=== PATIENT | male | born 1950 | race American Indian/Alaskan Native ===

== ENCOUNTER 2016-10-02 11:47 | Observation (INO) ==
--- NOTE | 2016-10-02 14:04 | Emergency Department Note ---
Disposition Clinical Impression: Chest pain Qualifiers: Chest pain type: unspecified Qualified Code(s): R07.9 - Chest pain, unspecified Disposition: Admitted As Inpatient Condition: Fair Referrals: Niurka Rob MD [Primary Care Provider] - Forms: ED Satisfaction Letter Time of Disposition: 15:10 Chest Pain HPI - General Chief Complaint: ED Chest Pain Stated Complaint: chest pain Time Seen by Provider: 10/02/16 14:02 Source: patient Mode of arrival: ambulatory Limitations: no limitations Vital Signs Reviewed: Yes Nursing Notes Reviewed: Yes - History of Present Illness HPI Narrative: 66-year-old male who comes in with complaints of chest pain described as substernal started in the middle of the night. The patient states he has risk factors of cigarette smoking, hypertension, high cholesterol. The patient states he had a cardiac catheter 2 years ago that showed some moderate blockage. Pt complaint: chest pain Onset (ago): hour(s) Duration: constant Onset: during rest Pain Location: substernal, left chest Severity: moderate Severity scale (1-10): 5 Quality: tightness, aching, heaviness Pain Radiation: none Improves with: nothing Worsens with: nothing Treatments prior to arrival chest pain: none - Related Data Home Medications Medication Instructions Recorded Confirmed Alprazolam [Xanax 0.5 MG Tablet] 0.5 mg PO BID PRN 02/12/16 10/02/16 Cholecalciferol (D-3) [Vitamin D] 5,000 unit PO DAILY 02/12/16 10/02/16 Iron Polysaccharide Complex [Pro 180 mg PO DAILY 02/12/16 10/02/16 Fe] Lansoprazole [Prevacid] 30 mg PO DAILY 02/12/16 10/02/16 Lisinopril [Zestril] 10 mg PO DAILY 02/12/16 10/02/16 Milk Thistle 150 mg PO DAILY 02/12/16 10/02/16 Multivitamin [Multi-Day Vitamins] 1 tab PO DAILY 02/12/16 10/02/16 Plant Stanol Rosetta [Cholest Off] 450 mg PO DAILY 02/12/16 10/02/16 Ubidecarenone [Co Q10] 100 mg PO DAILY 02/12/16 10/02/16 Previous Rx's Medication Instructions Recorded Folic Acid 1 mg PO DAILY 30 Days 02/13/16 Metoprolol XL (24 HR) Succ [Toprol 50 mg PO DAILY 30 Days 02/13/16 Xl] Thiamine (B-1) [Vitamin B-1] 50 mg PO DAILY 30 Days 02/13/16 Sucralfate [Carafate] 1 gm PO QIDA #30 tablet 06/16/16 Allergies Allergy/AdvReac Type Severity Reaction Status Date / Time Iodinated Contrast Media - Allergy Anaphylaxis Verified 06/16/16 12:15 Oral and Constitutional: Denies: fever, chills, weakness, weight change Eyes: Denies: eye pain, eye discharge, vision change ENT ED: Denies: ear pain, throat pain, dental pain, hearing loss, epistaxis, congestion, dysphagia Cardiovascular: Reports: chest pain. Denies: palpitations, dyspnea on exertion , edema, syncope Respiratory: Denies: cough, dyspnea, wheezes, hemoptysis, stridor Gastrointestinal: Denies: abdominal pain, nausea, vomiting, diarrhea, constipation, hematemesis, melena, hematochezia Genitourinary: Denies: urgency, dysuria, frequency, hematuria Musculoskeletal: Denies: back pain, neck pain, arthralgia, myalgia Integumentary: Denies: rash, abrasion, lesions Neurological: Denies: headache, weakness, numbness, paresthesias, confusion, abnormal gait, vertigo Psychiatric: Denies: anxiety, depression, suicidal thoughts, homicidal thoughts , auditory hallucinations, visual hallucinations Endocrine: Denies: fatigue Hematological/Lymphatic: Denies: easy bleeding, easy bruising Allergic/Immunologic: Denies: facial swelling, urticaria Chest Pain PMH - Past Medical History Medical history: Reports: arthritis, fibromyalgia, GERD, hyperlipidemia, hypertension Psychiatric history: Reports: anxiety, depression - Social History Smoking Status: Current some day smoker Alcohol use: Reports: heavy Drug use: Reports: none Physical Exam - General Limitations: no limitations General appearance: alert - Head Head exam: atraumatic, normocephalic, normal inspection - Eye Eye exam: Present: normal appearance, PERRL, EOMI - ENT ENT exam: normal exam, normal oropharynx, mucous membranes moist - Neck Neck exam: Present: normal inspection, full ROM, trachea midline - Chest Chest inspection: Present: normal inspection, symmetric chest wall rise - Respiratory Respiratory exam: Present: normal lung sounds bilaterally - Cardiovascular Cardiovascular exam: Present: regular rate, normal rhythm, normal heart sounds - Abdominal Exam Abdominal exam: Present: soft, Non-Tender. Absent: tenderness, distention, guarding, rebound, rigidity - Extremities Exam Extremities exam: Present: normal inspection, full ROM. Absent: tenderness, pedal edema - Expanded Lower Extremity Exam Neurovascular/Tendon exam: Absent: motor deficit, sensory deficit, tendon deficit Gait: observed and normal - Back Exam Back exam: Present: normal inspection - Neurological Exam Neurological exam: Present: alert, oriented X3 - Psychiatric Psychiatric exam: Present: normal affect, normal mood - Skin Skin exam: Present: warm, dry, intact, normal color Course - Reevaluation(s) Reevaluation #1: 66-year-old with risk factors who comes in complaining of intermittent chest pain. Patient's had no recent cardiac workup. We will admit for further evaluation daughter notes that he does drink 12-15 beers per day. Time: 15:38 - Consultations Consultation #1: Discussed with velma Ramirez. Time: 15:37 Vital Signs Temperature 98.9 F 10/02/16 12:10 Pulse Rate 80 10/02/16 12:10 Respiratory Rate 16 10/02/16 12:10 Blood Pressure 177/91 10/02/16 12:10 O2 Sat by Pulse Oximetry 99 10/02/16 12:10 Temperature 98.9 F 10/02/16 12:10 Pulse Rate 76 10/02/16 15:15 Respiratory Rate 16 10/02/16 15:15 Blood Pressure 156/100 10/02/16 15:15 O2 Sat by Pulse Oximetry 99 10/02/16 15:15 Oxygen Delivery Oxygen Delivery Room Air Chest Pain - Lab Data Lab results reviewed: Yes I reviewed the patient's lab results. Result diagrams: 10/02/16 13:58 10/02/16 13:58 Lab Results 10/02/16 10/02/16 10/02/16 Range/Units 13:58 13:58 13:58 WBC 6.7 (4.3-11.1) K/mcL RBC 4.06 L (4.19-5.50) M/mcL Hgb 14.0 (12.9-16.9) g/dL Hct 39.0 (37.5-50.1) % MCV 96.1 (83.0-100.0) fL MCH 34.5 H (28.0-33.3) pg MCHC 35.9 H (31.6-35.5) g/dL RDW 12.4 (11.5-14.5) % Plt Count 278 (140-400) K/mcL MPV 9.1 L (9.4-12.4) fL Immature Gran % 0.6 (0-4) % Seg Neutrophils % 58.9 % Lymphocytes % 30.2 % Monocytes % 8.1 % Eosinophils % 1.8 % Basophils % 0.4 % Neutrophils # 3.9 (1.6-8.9) K/mcL Lymphocytes # 2.0 (0.6-4.6) K/mcL Monocytes # 0.5 (0.0-1.3) K/mcL Eosinophils # 0.1 (0.0-0.6) K/mcL Basophils # 0.0 (0.0-0.2) K/mcL Immature Plt Fraction 2.1 (1.1-6.1) % PT 10.1 (9.4-12.1) Seconds INR 0.9 APTT 31.2 (26.0-36.0) Seconds Sodium (136-145) mEq/L Potassium (3.5-4.5) mEq/L Chloride (98-109) mEq/L Carbon Dioxide (19-29) mEq/L BUN (8-26) mg/dL Creatinine (0.72-1.25) mg/dL Est GFR ( Amer) (> 60) Est GFR (Non-Af Amer) (> 60) BUN/Creatinine Ratio (6-26) Glucose (70-99) mg/dL Calculated Osmolality (280-300) Calcium (8.6-10.8) mg/dL Troponin I (0-0.03) ng/mL B-Natriuretic Peptide 40 (0-100) pg/mL 10/02/16 10/02/16 Range/Units 13:58 13:58 WBC (4.3-11.1) K/mcL RBC (4.19-5.50) M/mcL Hgb (12.9-16.9) g/dL Hct (37.5-50.1) % MCV (83.0-100.0) fL MCH (28.0-33.3) pg MCHC (31.6-35.5) g/dL RDW (11.5-14.5) % Plt Count (140-400) K/mcL MPV (9.4-12.4) fL Immature Gran % (0-4) % Seg Neutrophils % % Lymphocytes % % Monocytes % % Eosinophils % % Basophils % % Neutrophils # (1.6-8.9) K/mcL Lymphocytes # (0.6-4.6) K/mcL Monocytes # (0.0-1.3) K/mcL Eosinophils # (0.0-0.6) K/mcL Basophils # (0.0-0.2) K/mcL Immature Plt Fraction (1.1-6.1) % PT (9.4-12.1) Seconds INR APTT (26.0-36.0) Seconds Sodium 135 L (136-145) mEq/L Potassium 3.9 (3.5-4.5) mEq/L Chloride 102 (98-109) mEq/L Carbon Dioxide 23 (19-29) mEq/L BUN 12 (8-26) mg/dL Creatinine 0.78 (0.72-1.25) mg/dL Est GFR ( Amer) > 60 (> 60) Est GFR (Non-Af Amer) > 60 (> 60) BUN/Creatinine Ratio 15 (6-26) Glucose 86 (70-99) mg/dL Calculated Osmolality 279 L (280-300) Calcium 9.1 (8.6-10.8) mg/dL Troponin I 0.01 (0-0.03) ng/mL B-Natriuretic Peptide (0-100) pg/mL - Radiology Data Radiology results reviewed: Yes I reviewed the patient's radiology results. Chest X-Ray 10/02/16 12:13 IMPRESSION: No evidence for acute cardiopulmonary process. D/ / Armani Rueda MD / Armani Rueda MD Interpreting Provider: Armani Rueda MD - EKG Data EKG attestation: Yes I reviewed and interpreted this EKG. EKG shows normal: sinus rhythm Rate: normal Rhythm: NSR Interpretation: no acute changes Heart Score - Score History: Slightly Suspicious EKG: Normal Age: Greater than 65 Risk Factors: 1-2 risk factors Troponin: Less than normal limit HEART Score Total: 3
[2016-10-02 14:05] LABS: Basophils % 0.4 %; Eosinophils # 0.1 K/mcL (0.0-0.6); Eosinophils % 1.8 %; Immature Granulocytes % 0.6 % (0-4); Immature Platelets 2.1 % (1.1-6.1); Lymphocytes % 30.2 %; Mean Corpuscular HGB Conc 35.9 g/dL (31.6-35.5); Mean Corpuscular Hemoglobin 34.5 pg (28.0-33.3); Mean Corpuscular Volume 96.1 fL (83.0-100.0); Mean Platelet Volume 9.1 fL (9.4-12.4); Monocytes # 0.5 K/mcL (0.0-1.3); Monocytes % 8.1 %; Neutrophils # 3.9 K/mcL (1.6-8.9); Platelet Count 278 K/mcL (140-400); Red Blood Count 4.06 M/mcL (4.19-5.50); Red Cell Distribution Width 12.4 % (11.5-14.5); Segmented Neutrophils % 58.9 %
[2016-10-02 14:16] LABS: INR 0.9; Prothrombin Time 10.1 Seconds (9.4-12.1)
[2016-10-02 14:17] LABS: BUN/Creatinine Ratio 15 (6-26); Blood Urea Nitrogen 12 mg/dL (8-26); Calcium 9.1 mg/dL (8.6-10.8); Carbon Dioxide 23 mEq/L (19-29); Chloride 102 mEq/L (98-109); Glucose 86 mg/dL (70-99); Osmolality,Calculated 279 (280-300); Potassium 3.9 mEq/L (3.5-4.5); Sodium 135 mEq/L (136-145); eGFR For African Americans > 60 (> 60); eGFR For Non-African Americans > 60 (> 60)
[2016-10-02 14:19] LABS: Activated Partial Thrombo Time 31.2 Seconds (26.0-36.0)
[2016-10-02] MEDS ORDERED: Aspirin 81 MG TAB.CHEW PO ONE (15:39)
[2016-10-02] MEDS ORDERED: Acetaminophen 325 MG TABLET PO PRN (16:25)
[2016-10-02] MEDS ORDERED: Naloxone 0.4 MG/ML INJ IVP PRN (16:25)
[2016-10-02] MEDS ORDERED: Thiamine (B-1) 100 MG TABLET PO SCH (16:30)
[2016-10-02] MEDS ORDERED: ALPRAZolam 0.5 MG TABLET PO PRN (16:30)
[2016-10-02] MEDS ORDERED: Iron Polysaccharide Complex 150 MG CAPSULE PO SCH (16:30)
[2016-10-02] MEDS ORDERED: Cholecalciferol (D-3) 1,000 UNIT TABLET PO SCH (16:30)
[2016-10-02] MEDS ORDERED: Folic Acid 1 MG TABLET PO SCH (16:30)
[2016-10-02] MEDS ORDERED: Lisinopril 20 MG TABLET PO SCH (16:30)
[2016-10-02] MEDS ORDERED: Metoprolol XL (24 HR) Succ 50 MG TAB.ER.24H PO SCH (16:30)
--- NOTE | 2016-10-02 16:47 | Internal Med History&Physical ---
Date of Encounter: 10/04/16 Time of Encounter: 16:41 Assessment and Plan (1) Chest pain Status: Acute Chest pain: Non-anginal chest pain. Plan -Admitted as an observation. -Cardiac diet. -Serial troponin. -ASA/BB/Statins -We will resume home medication -Echocardiogram. The patient has echocardiogram in the less than 1 year but The EKG changes are new - If echocardiogram is normal then please proceed with stress test. -The stress test is abnormal then please get a cardiology evaluation. Qualifiers: Chest pain type: unspecified Qualified Code(s): R07.9 - Chest pain, unspecified (2) Atrial fibrillation Status: Acute I saw this problem in the problem list. Patient's EKG is in sinus rhythm. Patient may have a paroxysmal A. fib Patient is a chronic alcoholic and has a risk of fall. It will be important to discuss with the patient regarding long-term anticoagulation. This cannot be done in the emergency room and rounding team will address this issue Qualifiers: Atrial fibrillation type: unspecified Qualified Code(s): I48.91 - Unspecified atrial fibrillation (3) HTN (hypertension) Status: Acute will resume home meds. Qualifiers: Hypertension type: essential hypertension Qualified Code(s): I10 - Essential (primary) hypertension (4) Hyperlipidemia Status: Acute on statins Qualifiers: Hyperlipidemia type: unspecified Qualified Code(s): E78.5 - Hyperlipidemia , unspecified (5) DVT prophylaxis Status: Acute Heparin Medical decision making: This patient has a [id number] risk of worsening cardiac failure in spite of being on appropriate medications Internal Medicine - H&P: HPI Chief complaint: Chest pain Admitted From: Emergency Dept Plans for Post Hospital Care: Home History of present illness: PCP : Pat lay [facility] Brief PMH: Excessive Etoh abuse, Smoker, HTN, Strong family history of CAD HPI: Patient is complaining of persistent, retrosternal, nonradiating, localize , off and on chest pain for more than one week. The pain is worse in the last 48 hours. Patient is unable to perform immediate reactivity. Movements and coughing of the exacerbation factors and rest is relieving factors. Patient was evaluated by PCP 3 days ago. Patient also complains that there is a bloating sensation which is worsening in the last 1 week. Patient to PPI for more than 6 weeks. Course in the emergency room: Patient was evaluated in the emergency room. EKG was done. EKG was not suggestive of any acute process. There is a mild left ventricular hypertrophy. This can be associated with his prolonged/CVA or drinking alcohol. Initial troponin was negative. I have evaluated this patient in the emergency room. Reason for admission: Chest pain to rule out myocardial infarction. DIPAK: 2 Family history: Noncontributory Past Med Surg Social Fam HX - Past Medical History Medical history: arthritis, fibromyalgia, GERD, hyperlipidemia, hypertension Psychiatric history: anxiety, depression - Social History Smoking Status: Current some day smoker Smokeless Tobacco Status: No Alcohol use: heavy Drug use: none - Family History Father Family Member Ethnicity: Non- Living Status: Internal Medicine - H&P: Meds Alprazolam [Xanax 0.5 MG Tablet] 0.5 mg PO BID PRN 02/12/16 [History] Cholecalciferol (D-3) [Vitamin D] 5,000 unit PO DAILY 02/12/16 [History] Iron Polysaccharide Complex [Pro Fe] 180 mg PO DAILY 02/12/16 [History] Lansoprazole [Prevacid] 30 mg PO DAILY 02/12/16 [History] Lisinopril [Zestril] 10 mg PO DAILY 02/12/16 [History] Milk Thistle 150 mg PO DAILY 02/12/16 [History] Multivitamin [Multi-Day Vitamins] 1 tab PO DAILY 02/12/16 [History] Plant Stanol Rosetta [Cholest Off] 450 mg PO DAILY 02/12/16 [History] Ubidecarenone [Co Q10] 100 mg PO DAILY 02/12/16 [History] Folic Acid 1 mg PO DAILY 30 Days 02/13/16 [Rx] Metoprolol XL (24 HR) Succ [Toprol Xl] 50 mg PO DAILY 30 Days 02/13/16 [Rx] Thiamine (B-1) [Vitamin B-1] 50 mg PO DAILY 30 Days 02/13/16 [Rx] Sucralfate [Carafate] 1 gm PO QIDAC #30 tablet 06/16/16 [Rx] Allergies Iodinated Contrast Media - Oral and Allergy (Verified 06/16/16 12:15) Anaphylaxis All Systems PM: A 10-system review of systems was performed and is negative for pertinent findings except as documented above in the HPI. - Constitutional Constitutional: no chills, no fever(s), no night sweats - EENT Eyes: no change in vision, no discharge, no pain, no photophobia Ears: no ear discharge, no ear pain, no tinnitus Nose, mouth and throat: no dysphagia, no nasal discharge, no neck pain, no sore throat - Cardiovascular Cardiovascular ROS IM: chest pain, no diaphoresis, no dyspnea, no lightheadedness, no palpitations, no syncope - Respiratory Respiratory: no cough, no dyspnea, no wheezing, no excessive phlegm production - Gastrointestinal Gastrointestinal: no abdominal pain, no diarrhea, no hematemesis, no hematochezia, no melena, no nausea, no vomiting - Musculoskeletal Musculoskeletal ROS IM: no numbness, no tingling - Integumentary Integumentary IM: no rash, no unusual bruising - Neurological Neurological ROS: no confusion, no convulsions, no focal weakness, no numbness, no tingling, no tremor(s) - Hematologic/Lymphatic Hematologic/Lymphatic: no easy bruising - Constitutional Vitals: Temp Pulse Resp BP Pulse Ox 98.9 F 76 16 184/107 99 10/02/16 12:10 10/02/16 15:15 10/02/16 16:11 10/02/16 16:11 10/02/16 15:15 General appearance: Present: A&O X 3, morbidly obese, pleasant, no acute distress, answers questions appropriately - Head Head exam: Present: atraumatic, normocephalic - Eye Eye exam: Present: PERRL, conjuntiva pink, sclera anicteric Pupils: Present: PERRL - Neck Neck exam general surgery: Present: supple, trachea midline. Absent: lymphadenopathy - Respiratory Respiratory exam: Present: CTAB. Absent: accessory muscle use, rales, rhonchi, wheezes - Cardiovascular Cardiovascular exam: Present: RRR, +S1, +S2. Absent: diastolic murmur, gallop, rubs, systolic murmur - GI/Abdominal GI/Abdominal exam: Present: normal bowel sounds, soft, no peritoneal signs. Absent: distended, tenderness - Extremities Exam Extremities exam: Present: warm, radial pulses palpable and symetrical. Absent : calf tenderness, cyanotic, pedal edema - Neurological Exam Neurological exam: Present: CN II-XII intact, oriented X3, no focal deficits. Absent: pronater drift, facial droop, speech deficit - Skin Skin exam: Present: dry, intact Internal Med - H&P Results - Labs CBC & Chem 7: 10/03/16 03:40 10/03/16 03:40 Labs: Discussed with the emergency room physician
[2016-10-03 00:34] VITALS: BP 132/87
[2016-10-03 04:03] LABS: Basophils % 0.6 %; Eosinophils # 0.2 K/mcL (0.0-0.6); Eosinophils % 2.5 %; Hematocrit 41.4 % (37.5-50.1); Hemoglobin 14.3 g/dL (12.9-16.9); Immature Granulocytes % 0.8 % (0-4); Lymphocytes # 2.3 K/mcL (0.6-4.6); Mean Corpuscular HGB Conc 34.5 g/dL (31.6-35.5); Mean Corpuscular Hemoglobin 33.5 pg (28.0-33.3); Mean Platelet Volume 9.2 fL (9.4-12.4); Monocytes # 0.7 K/mcL (0.0-1.3); Neutrophils # 3.9 K/mcL (1.6-8.9); Platelet Count 276 K/mcL (140-400); Red Blood Count 4.27 M/mcL (4.19-5.50); Red Cell Distribution Width 12.6 % (11.5-14.5); Segmented Neutrophils % 54.1 %
[2016-10-03 04:24] LABS: Alanine Aminotransferase 23 Units/L (0-55); Albumin/Globulin Ratio 1.3 (1.1-2.2); Alkaline Phosphatase 44 Units/L (38-126); Aspartate Amino Transferase 26 Units/L (5-34); BUN/Creatinine Ratio 16 (6-26); Bilirubin,Total 1.1 mg/dL (0.2-1.2); Blood Urea Nitrogen 13 mg/dL (8-26); Calcium 8.9 mg/dL (8.6-10.8); Carbon Dioxide 25 mEq/L (19-29); Chloride 102 mEq/L (98-109); Chol/HDL Ratio 5.4 (0-4.9); Cholesterol 249 mg/dL (< 200); Globulin 3.2 g/dL (2.4-3.5); Glucose 107 mg/dL (70-99); HDL Cholesterol 46 mg/dL (40-59); Magnesium 2.2 mg/dL (1.6-2.6); Osmolality,Calculated 285 (280-300); Phosphorous 3.5 mg/dL (2.3-4.7); Potassium 3.9 mEq/L (3.5-4.5); Sodium 137 mEq/L (136-145); Total Protein 7.2 g/dL (6.0-8.3); Triglycerides 593 mg/dL (< 150); eGFR For African Americans > 60 (> 60); eGFR For Non-African Americans > 60 (> 60)
[2016-10-03] MEDS ORDERED: Aspirin Enteric Coated 81 MG Tablet PO SCH (09:00)
--- NOTE | 2016-10-03 09:35 | Electrocardiograph Report ---
[place] [id number] Test Date: 2016-10-02 Pat Name: Inocente Espinoza Department: 102 Room: [facility] Gender: M Patternator: : 1950 Requested By: Arash Simons Order Number: [id number] Reading MD: Bonita Nicole Measurements Intervals [place] Rate: 79 P: 59 CA: 168 QRS: 47 QRSD: 100 T: 60 QT: 404 QTc: 439 Interpretive Statements SINUS RHYTHM MODERATE VOLTAGE CRITERIA FOR LVH, CONSIDER NORMAL VARIANT Electronically Signed On 10-03-2016 9:33:37 EST by Bonita Nicole
== END 2016-10-03 04:05 | disposition left against medical advice (07) ==
LOC: 3NENU 11:47 → EMEROO 11:47 → 3NENU 16:36
PROVIDERS: ADMIT Internal Medicine; ATTEND Internal Medicine Endocrinology, Diabetes & Metabolism